=== PATIENT | female | born 1945 | race African-American/Black ===

== ENCOUNTER → 2016-05-22 | Outpatient (CLI) | payer MEDICAID, MEDICARE, OTHER ==
[~2016-05-22] MED LIST: ALEN70SO3 PO; HYDR12.529 PO; LISI10TA5 PO; NIFE60TA7 PO; SIMV20TA6 PO
== END | disposition home or self-care (01) ==
LOC: RAD 10:14
PROVIDERS: ATTEND General Practice
DX: M19.012 Primary osteoarthritis, left shoulder (principal)
CPT/HCPCS: 73030

== ENCOUNTER 2023-04-12 18:00 | Emergency (ER) | payer BC, MEDICAID ==
[~2023-04-12] VITALS: Ht 157.5 cm; Wt 50.0 kg
[~2023-04-12 18:00] MED LIST changes: -ALEN70SO3 PO; +ALEN70SO4 PO; +LISI10TA26 PO; -LISI10TA5 PO; +NIFE-127 PO; -NIFE60TA7 PO; +SIMV-43 PO; -SIMV20TA6 PO
[2023-04-12 18:03] VITALS: TEMP 97.8; O2SAT 99
[2023-04-12] MEDS: KETOROLAC 60MG/2ML VIAL IM ONE (19:45)
[2023-04-12] MEDS ORDERED: NAPR375T5 MT (21:59)
[2023-04-12 22:08] VITALS: BP 153/65; PULSE 83; RESP 13
== END 2023-04-12 22:14 | disposition home or self-care (01) ==
LOC: ER 18:00
DX: M16.0 Bilateral primary osteoarthritis of hip (principal); E11.9 Type 2 diabetes mellitus without complications; I10 Essential (primary) hypertension; F03.90 Unspecified dementia, unspecified severity, without behavioral disturbance, psychotic disturbance, mood disturbance, and anxiety; Z88.0 Allergy status to penicillin; Z86.73 Personal history of transient ischemic attack (TIA), and cerebral infarction without residual deficits
CPT/HCPCS: 99283; 72170; 96372; J1885